=== PATIENT | male | born 1975 | race African-American/Black ===

== ENCOUNTER 2019-06-26 21:07 | Emergency (ER) | payer MEDICAID ==
[~2019-06-26] VITALS: Ht 175.3 cm; Wt 115.0 kg
[2019-06-26] MEDS ORDERED: MORPHINE SULFATE 4 MG/ML CPJ (NOT FOR IM USE) IV STA (21:35)
[2019-06-26] MEDS ORDERED: ONDANSETRON HCL 4MG/2ML INJ IV STA (21:35)
[2019-06-26] MEDS ORDERED: CEFAZOLIN 1000MG PREMIX 50 ML IV ONE (21:45)
[2019-06-26] MEDS ORDERED: LIDOCAINE 1%/EPI 1:100,000 10 ML VIAL IJ ONE (22:15)
[2019-06-26] MEDS ORDERED: LIDOCAINE HCL/EPINEPHRINE 1%-EPI 1:100,000 20 ML VIAL INFIL SCH (22:30)
[2019-06-26 23:30] VITALS: BP 158/102
== END 2019-06-26 23:34 | disposition home or self-care (01) ==
LOC: ER 21:07
DX: S01.80XA Unspecified open wound of other part of head, initial encounter (principal); X58.XXXA Exposure to other specified factors, initial encounter; Y93.89 Activity, other specified; Y92.89 Other specified places as the place of occurrence of the external cause; Y99.8 Other external cause status; W34.00XA Accidental discharge from unspecified firearms or gun, initial encounter; E11.9 Type 2 diabetes mellitus without complications; I10 Essential (primary) hypertension
CPT/HCPCS: 70450; 70486; 96365; 96375; 99285; J0690; J2270; J2405; J3490